=== PATIENT | female | born 1940 | race Hispanic/Latino ===

== ENCOUNTER 2016-10-15 12:22 | Inpatient (IN) | payer MEDICARE, BC ==
[2016-10-15 12:47] VITALS: BMI 23.3
--- NOTE | 2016-10-15 13:21 | ED PDOC ---
Arrival/HPI - General Chief Complaint: Abnormal Skin Integrity Time Seen by Provider: 10/15/16 13:14 Historian: Patient - History of Present Illness Narrative History of Present Illness (Text): 10/15/16 13:15 A 76 year old female presents to the emergency department complaining of a rash on the right side of her chest radiating to her back for 2 days. Patient reports she first experienced a burning pain which then over a few days developed into a rash. Patient also notes generalized weakness, shortness of breath and dyspnea on exertion over the past 3 days. Patient denies any fever, chills, nausea, vomiting, abdominal pain, chest pain or any other complaints. PMD: Dr. Rutherford Time/Duration: < week Symptom Course: Unchanged Quality: Other Context: Other Past Medical History - Provider Review Nursing Documentation Reviewed: Yes - Past History Past History: No Previous - Infectious Disease Hx of Infectious Diseases: None - Tetanus Immunization Tetanus Immunization: Unknown - Reproductive Menopause: Yes - Cardiac Hx Cardiac Disorders: Yes Hx Atrial Fibrillation: Yes Hx Congestive Heart Failure: Yes Other/Comment: Cardiac Stents - Pulmonary Hx Respiratory Disorders: Yes Hx Chronic Obstructive Pulmonary Disease (COPD): Yes - Neurological Hx Neurological Disorder: Yes HX Cerebrovascular Accident: Yes - HEENT Hx HEENT Disorder: No - Renal Hx Renal Disorder: No - Endocrine/Metabolic Hx Endocrine Disorders: No - Hematological/Oncological Hx Blood Disorders: No - Integumentary Hx Dermatological Disorder: Yes (SKIN CA-RADIATION TREATMENTS) Hx Melanoma: Yes - Musculoskeletal/Rheumatological Hx Musculoskeletal Disorders: No Hx Falls: No - Gastrointestinal Hx Gastrointestinal Disorders: No - Genitourinary/Gynecological Hx Genitourinary Disorders: No - Psychiatric Hx Psychophysiologic Disorder: Yes Hx Anxiety: Yes Hx Depression: No Hx Emotional Abuse: No Hx Physical Abuse: No Hx Substance Use: No - Surgical History Hx Coronary Stent: Yes Other/Comment: Brain Tumor - Anesthesia Hx Anesthesia: Yes - Suicidal Assessment Feels Threatened In Home Enviroment: No Family/Social History - Physician Review Nursing Documentation Reviewed: Yes Family/Social History: No Known Family HX Smoking Status: Light Smoker < 10 Cigarettes Daily Hx Alcohol Use: Yes Hx Substance Use: No Allergies/Home Meds Allergies/Adverse Reactions: Allergies No Known Allergies Allergy (Verified 10/15/16 12:47) Home Medications: Home Meds Medication Instructions Recorded Confirmed Atorvastatin Calcium [Lipitor] 20 mg PO HS 07/22/12 10/15/16 Aspirin [Ecotrin] 81 mg PO DAILY 05/11/16 10/15/16 Apixaban [Eliquis] 5 mg PO BID 05/19/16 10/15/16 Verapamil [Calan Tab] 40 mg PO BID 05/19/16 10/15/16 Valsartan [Diovan] 0 mg PO DAILY 10/15/16 10/15/16 Physical Exam - Physical Exam Narrative Physical Exam (Text): - Review of Systems Constitutional: (+) Generalized weakness absent: Weight Change, Fevers Eyes: Normal ENT: Normal Respiratory: (+) Shortness of breath, Dyspnea on exertion absent: Cough, Sputum Cardiovascular: Normal absent: Chest pain, Palpitations, Syncope Gastrointestinal: Normal absent: Abdominal pain, Diarrhea, Nausea, Vomiting Genitourinary: Normal. absent: Dysuria, Frequency, Hematuria Musculoskeletal: Normal. absent: Arthralgias, Back Pain, Neck Pain Skin: (+) Rash on right sided of chest radiating to back Neurological: Normal absent: Focal Weakness Endocrine: Normal Hemo/Lymphatic: Normal Psychiatric: Normal - Physical exam Patient appears age appropriate, speaking full sentences without difficulty - Systems Exam Head: Present: Atraumatic, Normocephalic Pupils: Present: PERRL Extraocular Muscles: Present: EOMI Conjunctiva: Present: Normal Mouth: Present: Moist Mucous Membranes Neck: Present: Normal Range of Motion. No: MIDLINE TENDERNESS, Paraspinal Tenderness Respiratory/Chest: Present: Clear to Auscultation, Good Air Exchange. No: Respiratory Distress, Accessory Muscle Use, Tachypnic Cardiovascular: Present: Regular Rate and Rhythm, Normal S1, S2, Peripheral Pulses Present. No: Murmurs Abdomen: Present: Normal Bowel Sounds, No: Tenderness, Peritoneal Signs, Rebound, Guarding, Distention Back: Present: Normal Inspection. No: Midline Tenderness, Paraspinal Tenderness Upper Extremity: Present: Normal Inspection. No: Cyanosis, Edema Lower Extremity: Present: Normal Inspection. No: Edema Neurological: Present: GCS=15, Speech Normal, cranial nerves II through XII fully intact with no cerebellar abnormality, neuro-sensory fully intact. No focal neurological deficits. Skin: Present: Warm, Dry, Erythematous rash in dermatomal distribution, no crossing midline, consistent with shingles Lymphatic: Present: OX3, NI, NC Psychiatric: Present: Alert, Oriented x 3, Normal Insight, Normal Concentration Vital Signs Reviewed: Yes Vital Signs Temp Pulse Resp BP Pulse Ox 10/15/16 14:28 81 18 97/61 L 99 10/15/16 14:25 97/61 L 10/15/16 12:46 97.3 F L 70 18 101/72 99 Temperature: Afebrile Blood Pressure: Normal Pulse: Regular Respiratory Rate: Normal Appearance: Positive for: Well-Appearing, Non-Toxic, Comfortable Pain Distress: None Mental Status: Positive for: Alert and Oriented X 3 Medical Decision Making ED Course and Treatment: 10/15/16 13:15 Impression: A 76 year old female with a rash on the right side of her chest radiating to back. Consistent with shingles. She is also complaining of intermittent dyspnea on exertion. Lungs are clear to auscultation bilaterally. Patient is not a cardiac, not hypoxic. No lower extremity swelling, no pain or asymmetry. Differential Diagnosis included but are not limited to: Shingles, dehydration, pneumonia Plan: -- Chest xray -- EKG -- Labs -- Aspirin and Lasix -- Reassess and disposition Progress Notes: Patient refusing any pain medication at this time. Report Date : 10/15/2016 13:39:04 Procedure: Chest xray Dictator : Fito Bailey MD IMPRESSION: No active disease. 10/15/16 14:01 EKG shows afib at [address]-segment elevations. Interpreted by me. 10/15/16 16:11 labs reviewed, BNP below baseline pt states she feels too weak to be dc'd at this time dw Dr. Rutherford, accepted admission to her service pt aware of and agrees with plan - Lab Interpretations Lab Results: 10/15/16 14:15 10/15/16 15:10 Lab Results 10/15/16 15:10: Sodium 137, Potassium 3.5 L, Chloride 96 L, Carbon Dioxide 29, Anion Gap 16, BUN 29 H, Creatinine 1.3, Est GFR ( Amer) 48, Est GFR (Non- Af Amer) 40, Random Glucose 82, Calcium 9.6, Total Bilirubin 1.1, AST 42 H, ALT 18, Alkaline Phosphatase 107, Lactate Dehydrogenase 495, Total Creatine Kinase 48, Troponin I < 0.01, NT-Pro-B Natriuret Pep 2320 H, Total Protein 8.3, Albumin 4.3, Globulin 3.9, Albumin/Globulin Ratio 1.1 10/15/16 14:15: PT 11.3, INR 1.05, APTT 30.7 10/15/16 14:15: WBC 6.8 D, RBC 5.06, Hgb 15.8, Hct 45.4, MCV 89.7, MCH 31.2, MCHC 34.8, RDW 14.5, Plt Count 213, MPV 12.4 H, Gran % 62.5, Lymph % (Auto) 29.0 , Trigg % (Auto) 6.3 H, Eos % (Auto) 1.3 L, Baso % (Auto) 0.9, Gran # 4.26, Lymph # 2.0, Trigg # 0.4, Eos # 0.1, Baso # 0.06 - RAD Interpretation Radiology Orders: 10/15/16 13:18 CHEST PORTABLE [RAD] Stat - Medication Orders Current Medication Orders: Discontinued Medications Aspirin (Aspirin Chewable) 324 mg PO STAT STA Stop: 10/15/16 13:19 Furosemide (Lasix) 20 mg IVP STAT STA Stop: 10/15/16 13:19 Last Admin: 10/15/16 14:25 Dose: 20 mg Oxycodone/Acetaminophen (Percocet 5/325 Mg Tab) 1 tab PO STAT STA Stop: 10/15/16 14:39 Last Admin: 10/15/16 14:45 Dose: 1 tab - Scribe Statement The provider has reviewed the documentation as recorded by the Arely Gage Provider Scribe Attestation: All medical record entries made by the Lolisibevy were at my direction and personally dictated by me. I have reviewed the chart and agree that the record accurately reflects my personal performance of the history, physical exam, medical decision making, and the department course for this patient. I have also personally directed, reviewed, and agree with the discharge instructions and disposition. Disposition/Present on Arrival - Present on Arrival Any Indicators Present on Arrival: No History of DVT/PE: No History of Uncontrolled Diabetes: No Urinary Catheter: No History of Decub. Ulcer: No History Surgical Site Infection Following: None - Disposition Have Diagnosis and Disposition been Completed?: Yes Diagnosis: Shingles Disposition: HOSPITALIZED Disposition Time: 16:14 Patient Plan: Observation Patient Problems: Current Active Problems Problem Status Onset Shinglsam Acute Condition: FAIR Discharge Instructions (ExitCare): Shira (ED)
--- NOTE | 2016-10-15 13:40 | RAD ---
HISTORY: cough COMPARISON: 07/01/2016 FINDINGS: LUNGS: No active pulmonary disease. PLEURA: No significant pleural effusion identified, no pneumothorax apparent. CARDIOVASCULAR: Normal. OSSEOUS STRUCTURES: No significant abnormalities. VISUALIZED UPPER ABDOMEN: Normal. OTHER FINDINGS: None. IMPRESSION: No active disease.
[2016-10-15 14:22] LABS: ADD MANUAL DIFF? NO
[2016-10-15 14:25] LABS: BASO # 0.06 K/mm3 (0.0-2.0); BASO % 0.9 % (0.0-3.0); EOS # 0.1 (0.0-0.7); EOS % 1.3 % (1.5-5.0); GRAN # 4.26 (1.4-6.5); GRAN % 62.5 % (50.0-68.0); HEMATOCRIT 45.4 % (36.0-48.0); MEAN CELL VOLUME 89.7 fL (80.0-105.0); MEAN CORPUSCULAR HEMOGLOBIN 31.2 pg (25.0-35.0); MEAN CORPUSCULAR HGB CONC 34.8 g/dl (31.0-37.0); MEAN PLATELET VOLUME 12.4 fl (7.0-11.0); MONO # 0.4 (0.1-0.6); MONO % 6.3 % (1.0-6.0); PLATELET COUNT 213 10^3/uL (120.0-450.0); RED CELL DISTRIBUTION WIDTH 14.5 % (11.5-14.5); WHITE BLOOD COUNT 6.8 10^3/ul (4.5-11.0)
[2016-10-15 14:35] LABS: INR 1.05 (0.93-1.08); PARTIAL THROMBOPLASTIN TIME 30.7 Seconds (23.7-30.8)
[2016-10-15] MEDS ORDERED: Oxycodone/Acetaminophen 5/325 mg Tab PO STA (14:38)
[2016-10-15 15:49] LABS: ALB/GLOB RATIO 1.1 (1.1-1.8); ALKALINE PHOSPHATASE 107 U/L (38-133); ALT/SGPT 18 U/L (7-56); AST/SGOT 42 U/L (15-39); BILIRUBIN,TOTAL 1.1 mg/dL (0.2-1.3); BLOOD UREA NITROGEN 29 mg/dL (7-21); CALCIUM 9.6 mg/dL (8.4-10.5); CARBON DIOXIDE 29 mmol/L (21-33); CHLORIDE 96 mmol/L (98-107); GFR AFRICAN-AMERICAN 48; GLUCOSE,RANDOM 82 mg/dL (70-110); POTASSIUM 3.5 mmol/L (3.6-5.0); SODIUM 137 mmol/L (132-148); TOTAL PROTEIN 8.3 g/dL (5.8-8.3)
[2016-10-15 16:01] LABS: TROPONIN I < 0.01 ng/mL
[2016-10-15] MEDS: Levalbuterol 1.25 MG/3 ML Inhal Soln UD IH SCH (21:29)
--- NOTE | 2016-10-16 00:02 | HP ---
HISTORY OF PRESENT ILLNESS: The patient is a 76-year-old female known to me from multiple previous a dmissions, came to Emergency Room having discomfort and burning on the right side of the chest radiat ing towards the back going on for the last 2 days and she started to notice rash on the same side whe re she was having pain for the last few days. Complained of generalized weakness. Complained of fee ling very fatigued and tired, short of breath. Denies any fever or chills. No history of nausea or vomiting, no history of hemoptysis, no hematemesis. PAST MEDICAL HISTORY: Significant for: 1. Chronic atrial fibrillation, currently on anticoagulant. 2. History of COPD. 3. History of coronary artery disease, status post angioplasty. 4. History of compression fractures of L1. 5. Hyperlipidemia. 6. Anxiety disorder. ALLERGIES: SHE IS ALLERGIC TO PLAVIX. MEDICATIONS AT HOME: 1. Eliquis 5 mg twice a day. 2. Xanax 0.25 t.i.d. p.r.n. 3. Verapamil 40 mg twice a day. 4. Aspirin 81 daily. 5. Atorvastatin 20 mg daily. 6. . SOCIAL HISTORY: She is single. She is a . She is still an active smoker, although she claims she has cut down a lot. REVIEW OF SYSTEMS: Significant for right-sided burning chest pain because of the rash and also compl ained of generalized weakness, cough and congestion, shortness of breath. PHYSICAL EXAMINATION: GENERAL: She is awake and alert, communicative. VITAL SIGNS: She is afebrile, pulse 70, respirations 18, blood pressure 101/72. LUNGS: Bilateral diffusely decreased breath sounds, few expiratory rhonchi. HEART: S1, S2 audible. ABDOMEN: Soft, nontender, no rebound, no guarding. NEUROLOGIC: She is awake and alert, communicative and moves all extremities. She has a rash on the right side of the chest. ASSESSMENT: 1. Herpes zoster. 2. Chronic obstructive pulmonary disease exacerbation. 3. Atrial fibrillation. 4. Hypertension. 5. Hyperlipidemia. PLAN: We will start patient on , resume her usual medication, analgesic as needed. We will ree valuate the patient in a.m. Deny Rutherford MD cc: [phone] TT: 10/16/2016 00:01:37 ln
[2016-10-16] MEDS: Levalbuterol 1.25 MG/3 ML Inhal Soln UD IH SCH ×3 (00:59→13:29)
[2016-10-16] MEDS: Pantoprazole 40 mg EC Tab PO SCH (06:03)
[2016-10-16] MEDS ORDERED: Sodium Chloride 0.9% 250 ML IV STA (09:49)
--- NOTE | 2016-10-16 09:51 | CARD ---
APPROVED REPORT EKG Measurement Heart [id number] <Conclusion> Atrial fibrillation Prolonged QT RVCD No change
--- NOTE | 2016-10-16 12:08 | PN ---
DATE: 10/16/2016 SUBJECTIVE: The patient is a 76-year-old seen and examined, lying in bed, complained of having gener alized weakness, difficulty walking. Complained of shortness of breath. PHYSICAL EXAMINATION: VITAL SIGNS: She is afebrile, pulse 63, respirations 19, blood pressure 92/52. LUNGS: Bilateral fair airflow, no rhonchi or crackle. HEART: S1, S2 audible. ABDOMEN: Soft, nontender, no rebound, no guarding. NEUROLOGIC: She is awake and alert, communicative. Moves all extremities. She has a rash on her [facility] mid chest area, complained of burning to that area. ASSESSMENT: 1. Chronic obstructive pulmonary disease exacerbation. 2. History of atrial fibrillation. 3. Coronary artery disease. 4. Herpes zoster of the right chest with intractable pain. 5. Hyperlipidemia. 6. Anxiety disorder. 7. Hypotension. PLAN: We will give a bolus of 250 of normal saline. We will hold her Lasix and continue her on aspi rin and Eliquis. She has been started on Famvir and analgesic as needed. We can discontinue her tel emetry. Encourage ambulation, out of bed to chair. We will reevaluate the patient in a.m. Deny Rutherford MD cc: [phone] TT: 10/16/2016 12:07:39 Confirmation # [id number] Dictation # [id number] alonso
[2016-10-16] MEDS: Oxycodone/Acetaminophen 5/325 mg Tab PO PRN (22:05)
[2016-10-17] MEDS: Levalbuterol 1.25 MG/3 ML Inhal Soln UD IH SCH ×5 (02:59→22:15)
[2016-10-17] MEDS: Pantoprazole 40 mg EC Tab PO SCH (05:38)
[2016-10-17 08:32] LABS: POTASSIUM 3.6 mmol/L (3.6-5.0); TOTAL PROTEIN 6.5 g/dL (5.8-8.3)
--- NOTE | 2016-10-17 11:40 | PN ---
DATE: 10/17/2016 HISTORY OF PRESENT ILLNESS: The patient is a 76-year-old female admitted to the hospital with right- sided chest pain and eruption on the right side of the chest consistent with herpes zoster. She was feeling tired and fatigued. No shortness of breath, no fever, no shortness of breath. She also has history of atrial fibrillation, currently on Eliquis 5 mg twice a day. No bleeding from any site. C OPD, no exacerbation. Coronary artery disease status stable. She also has compression fracture of L 1 vertebra, denies any back pain. PAST MEDICAL HISTORY: Atrial fibrillation, COPD, coronary artery disease, compression fracture L1, h yperlipidemia, anxiety. ALLERGIES: ALLERGIC TO PENICILLIN. HOME MEDICATIONS: Eliquis 5 mg b.i.d., Xanax p.r.n., verapamil 40 twice a day, aspirin 81 mg daily, Lipitor 20 mg daily. PAST SURGICAL HISTORY: Unknown. FAMILY HISTORY: Noncontributory. No positive history mother, father. REVIEW OF SYSTEMS: As per HPI. Rest of 12-point reviewed, negative. SOCIAL HISTORY: Single, lives at home alone. PERSONAL HISTORY: Active smoker. Continues to smoke. PHYSICAL EXAMINATION: GENERAL: Comfortable in bed, no acute distress, alert, oriented x 3. VITAL SIGNS: Afebrile, temperature 98.7, heart rate 80 per minute, respiratory 15 per minute, blood pressure 110/70. NECK: Normal. CHEST: Air entry present, equal bilateral. No added sound. CARDIOVASCULAR: Within normal limits. ABDOMEN: Soft, nontender, no hepatosplenomegaly. EXTREMITIES: No edema. NEUROLOGIC: Awake, alert, oriented x 3. No focal motor deficit. ABDOMEN: Soft, nontender, no hepatosplenomegaly. No rebound tenderness. SKIN: Right side of the chest eruptions present and consistent with zoster. No petechia, rash as de scribed. SPINE: Nontender. LABORATORIES: White count 6.8, hemoglobin 15.8, hematocrit 45.5, platelet count 213, neutrophils 62% , lymphocytes 29%, monocytes 6.3%, eosinophils 1.3%. PT 11.3, INR 1.5, PTT 30. Sodium 137, potassiu m 3.6, creatinine 2.5. BNP 2300. ASSESSMENT: 1. Shingles. 2. Atrial fibrillation. 3. Chronic obstructive pulmonary disease. 4. Hypertension. 5. Hyperlipidemia. 6. Chronic kidney disease stage III. PLAN: She is currently on Xanax. We will continue that. Eliquis 5 mg p.o. b.i.d., continue that. Aspirin 81 mg daily. She is on Famvir 500 mg q. 8 hours, Lasix 20 mg daily, Percocet p.r.n. for pain , Protonix. Continue Protonix, verapamil 40 mg p.o. b.i.d. We will do discharge planning. When sta ble, will be discharged home. Carmen Mensah MD cc: [id number] TT: 10/17/2016 11:39:32 Confirmation # [id number] Dictation # [id number] en
[2016-10-17] MEDS: Oxycodone/Acetaminophen 5/325 mg Tab PO PRN (21:58)
[2016-10-18] MEDS: Levalbuterol 1.25 MG/3 ML Inhal Soln UD IH SCH ×4 (03:10→20:22)
[2016-10-18] MEDS: Pantoprazole 40 mg EC Tab PO SCH (05:59)
[2016-10-18] MEDS: Oxycodone/Acetaminophen 5/325 mg Tab PO PRN ×2 (08:19→21:47)
[2016-10-18] MEDS ORDERED: Dextrose 5%/0.45% NS 1,000 ML IV SCH (10:30)
--- NOTE | 2016-10-18 18:29 | PN ---
DATE: 10/18/2016 SUBJECTIVE: The patient is a 76-year-old seen and examined. Complained of generalized weakness, dif ficulty walking, complained of burning pain on the right side, rash seemed to be scabbed and scaly. PHYSICAL EXAMINATION: VITAL SIGNS: She is afebrile, pulse 84, respirations 18, blood pressure 119 65. LUNGS: Bilateral fair airflow, no rhonchi or crackle. HEART: S1, S2 audible. ABDOMEN: Soft, nontender, no rebound, no guarding. NEUROLOGIC: She is awake and alert, communicative. EXTREMITIES: She has a rash in the middle of the chest, extending from the back to the front, overly ing the right breast. LABORATORY: Sodium 137, potassium 3.6, chloride 99, CO2 28, BUN 45, creatinine 2.4, blood sugar of 1 07. LFTs are within normal limits. ASSESSMENT: 1. Herpes zoster along with hepatic neuralgia. 2. Atrial fibrillation. 3. Hypertension. 4. Hyperlipidemia. 5. Acute renal insufficiency. PLAN: I will discontinue Lasix, start her on IV fluid, and follow up her CBC and CMP. ID evaluation by Dr. Albrecht has been requested. The patient is started on Valtrex and we put her on Percocet as needed and follow up her CBC and CMP in a.m. Deny Rutherford MD cc: [phone] TT: 10/18/2016 18:28:32 Confirmation # [id number] Dictation # [id number] alonso
[2016-10-18 19:12] VITALS: RESP 20
[2016-10-19] MEDS: Oxycodone/Acetaminophen 5/325 mg Tab PO PRN (01:32)
[2016-10-19] MEDS: Dextrose 5%/0.45% NS 1,000 ML IV SCH ×2 (01:34→07:40)
[2016-10-19] MEDS: Levalbuterol 1.25 MG/3 ML Inhal Soln UD IH SCH ×3 (03:00→13:33)
[2016-10-19 07:18] LABS: ADD MANUAL DIFF? NO
[2016-10-19 07:24] LABS: BASO # 0.05 K/mm3 (0.0-2.0); BASO % 0.8 % (0.0-3.0); EOS # 0.1 (0.0-0.7); EOS % 2.2 % (1.5-5.0); GRAN % 62.1 % (50.0-68.0); HEMATOCRIT 36.5 % (36.0-48.0); LYMPH # 1.7 (1.2-3.4); LYMPH % 26.2 % (22.0-35.0); MEAN CORPUSCULAR HEMOGLOBIN 30.5 pg (25.0-35.0); MEAN CORPUSCULAR HGB CONC 34.2 g/dl (31.0-37.0); MEAN PLATELET VOLUME 11.8 fl (7.0-11.0); MONO # 0.6 (0.1-0.6); MONO % 8.7 % (1.0-6.0); PLATELET COUNT 224 10^3/uL (120.0-450.0); RED CELL DISTRIBUTION WIDTH 13.9 % (11.5-14.5); WHITE BLOOD COUNT 6.4 10^3/ul (4.5-11.0)
[2016-10-19 07:48] LABS: ALB/GLOB RATIO 1.1 (1.1-1.8); CALCIUM 8.9 mg/dL (8.4-10.5); POTASSIUM 4.2 mmol/L (3.6-5.0); TOTAL PROTEIN 6.8 g/dL (5.8-8.3)
[2016-10-19] MEDS: Pantoprazole 40 mg EC Tab PO SCH (08:03)
[2016-10-19 09:07] VITALS: TEMP 97.5; O2SAT 100
[2016-10-19 10:30] VITALS: BP 114/60; PULSE 81
--- NOTE | 2016-10-19 14:18 | DS ---
The patient is 76 years old, seen and examined. Doing well. She feels more energetic. Able to ambu late more. Still complained of pain in the right chest, the rash area. PHYSICAL EXAMINATION: VITAL SIGNS: She is afebrile, pulse 56, respiration 20, blood pressure 136/70. LUNGS: Bilateral good airflow, no rhonchi or crackle. HEART: S1, S2 audible. ABDOMEN: Soft, nontender, no rebound, no guarding. NEUROLOGIC: She is awake and alert, communicative. LABORATORY EXAM: WBC 6.4, hemoglobin 12, hematocrit 36, platelet of 224. Chemistry: Sodium 132, po tassium 4.2, chloride 96, CO2 of 28, BUN 41, creatinine 1.5, blood sugar of 95. ASSESSMENT: 1. Right chest herpetic lesion, seems to be scabbing. She complained of some herpetic neuralgia. 2. Hypertension. 3. Generalized weakness. 4. Renal insufficiency, improved. PLAN: Famvir has been discontinued. The patient does not want to take Valtrex. Since her rashes ar e scabbing, we will hold off Valtrex too and I will continue her on usual medication including verapa mil, aspirin, Diovan, Eliquis, atorvastatin. She was given prescription of Percocet as needed. She will be discharged home today and we will follow her up in office in a week or two. Deny Rutherford MD cc: [phone] TT: 10/19/2016 14:17:50 sn
--- NOTE | 2016-10-19 14:48 | CP.PCM.CON ---
History of Present Illness - History of Present Illness History of Present Illness: 76 year old female with PMH of brain cancer, history of skin cancer, CAD S/P PCI , chronic CHF, CVA, atrial fibrillation, anxiety disorder came in to [facility] complaining of rash on her right chest area for the past 2 days. She has been started on Famvir 2 days ago with improvement but her renal function worsened. Infectious diseases consult is requested to further evaluate and manage. Currently she denies fever or chills, no nausea or vomiting, no headache or dizziness, no chest pain, decreasing pain around the area of rash, no diarrhea, no hematuria, no dysuria, no SOB, no chest pain, no cough or colds. Review of Systems - Review of Systems All systems: reviewed and no additional remarkable complaints except (as per HPI ) Past Patient History - Infectious Disease Hx of Infectious Diseases: None - Tetanus Immunizations Tetanus Immunization: Unknown - Past Social History Smoking Status: Former Smoker - CARDIAC Hx Cardiac Disorders: Yes Hx Atrial Fibrillation: Yes Hx Congestive Heart Failure: Yes Other/Comment: Cardiac Stents - PULMONARY Hx Chronic Obstructive Pulmonary Disease (COPD): Yes - NEUROLOGICAL Hx Neurological Disorder: Yes HX Cerebrovascular Accident: Yes - HEENT Hx HEENT Problems: No - RENAL Hx Chronic Kidney Disease: No - ENDOCRINE/METABOLIC Hx Endocrine Disorders: No - HEMATOLOGICAL/ONCOLOGICAL Hx Blood Disorders: No - INTEGUMENTARY Hx Dermatological Problems: Yes (SKIN CA-RADIATION TREATMENTS) Hx Melanoma: Yes - MUSCULOSKELETAL/RHEUMATOLOGICAL Hx Falls: No - GASTROINTESTINAL Hx Gastrointestinal Disorders: No - GENITOURINARY/GYNECOLOGICAL Hx Genitourinary Disorders: No - PSYCHIATRIC Hx Psychophysiologic Disorder: Yes Hx Anxiety: Yes Hx Depression: No Hx Emotional Abuse: No Hx Physical Abuse: No Hx Substance Use: No - SURGICAL HISTORY Hx Coronary Stent: Yes Other/Comment: Brain Tumor - ANESTHESIA Hx Anesthesia: Yes Meds Home Medications: Home Medication List Medication Instructions Recorded Confirmed Type oxyCODONE/Acetaminophen [Percocet 1 tab PO Q6H PRN #30 tab 10/19/16 Rx 5/325 mg Tab] valACYclovir [Valtrex] 500 mg PO BID #10 tab 10/19/16 Rx Allergies/Adverse Reactions: Allergies Allergy/AdvReac Type Severity Reaction Status Date / Time No Known Allergies Allergy Verified 10/15/16 12:47 - Medications Medications: Current Medications Acetaminophen (Tylenol 325mg Tab) 650 mg PO Q6H PRN PRN Reason: Fever >100.4 F Alprazolam (Xanax) 0.25 mg PO TID PRN; Protocol PRN Reason: Anxiety Stop: 10/22/16 19:30 Last Admin: 10/16/16 22:05 Dose: 0.25 mg Apixaban (Eliquis) 5 mg PO 1000,2200 [facility] PRN Reason: Protocol Aspirin (Ecotrin) 81 mg PO 1700 [facility] Atorvastatin Calcium (Lipitor) 20 mg PO 1700 [facility] Dextrose/Sodium Chloride (Dextrose 5%/0.45% Ns 1000 Ml) 1,000 mls @ 80 mls/hr IV .[id number] [facility] Levalbuterol HCl (Xopenex) 1.25 mg IH [id number] [facility] Last Admin: 10/18/16 14:00 Dose: Not Given Ondansetron HCl (Zofran Inj) 4 mg IVP Q6H PRN PRN Reason: Nausea/Vomiting Pantoprazole Sodium (Protonix Ec Tab) 40 mg PO 0630 [facility] Last Admin: 10/18/16 05:59 Dose: 40 mg Valacyclovir HCl (Valtrex) 1 gm PO DAILY [facility] PRN Reason: Protocol Verapamil HCl (Calan Tab) 40 mg PO 1000,2200 [facility] Physical Exam - Constitutional Appears: Non-toxic, No Acute Distress - Head Exam Head Exam: NORMAL INSPECTION - ENT Exam ENT Exam: Mucous Membranes Moist - Neck Exam Neck exam: Negative for: Lymphadenopathy, Meningismus - Respiratory Exam Respiratory Exam: Decreased Breath Sounds - Cardiovascular Exam Cardiovascular Exam: +S1, +S2 - GI/Abdominal Exam GI & Abdominal Exam: Soft. absent: Tenderness - Skin Additional comments: right side of chest and breast with lesions compatible with herpes zoster - the lesions are crusting Results - Vital Signs Recent Vital Signs: Last Vital Signs Temp 97.8 F 10/18/16 16:00 Pulse 81 10/18/16 16:00 Resp 20 10/18/16 16:00 BP 141/68 10/18/16 16:00 Pulse Ox 98 10/18/16 16:00 - Labs Result Diagrams: 10/19/16 07:00 10/19/16 07:00 Assessment & Plan - Assessment and Plan (Free Text) Plan: Assessment Herpes zoster, clinically improving acute on chronic renal failure brain cancer history of skin cancer CAD S/P PCI chronic CHF CVA atrial fibrillation anxiety disorder Plan Lesions are crusting - maintain standard precautions but since the lesions are crusted, no contact isolation (And the lesions are covered as well) Patient has nausea with valtrex - based on her most recent renal function , she can continue on Famvir 500 mg daily to complete 3-5 more days of therapy
== END 2016-10-19 15:03 | disposition home or self-care (01) | DRG 596 ==
LOC: ED 12:22 → ERH 16:14 → 2RNO 20:39 → OBSVTOIN 10-16 11:46 → 5RSO 10-16 18:11
PROVIDERS: ADMIT Internal Medicine; ATTEND Internal Medicine
DX: B02.9 Zoster without complications (principal); N17.9 Acute kidney failure, unspecified; C71.9 Malignant neoplasm of brain, unspecified; I13.0 Hypertensive heart and chronic kidney disease with heart failure and stage 1 through stage 4 chronic kidney disease, or unspecified chronic kidney disease; I95.9 Hypotension, unspecified; I50.9 Heart failure, unspecified; J44.1 Chronic obstructive pulmonary disease with (acute) exacerbation; M48.56XA Collapsed vertebra, not elsewhere classified, lumbar region, initial encounter for fracture; N18.3 Chronic kidney disease, stage 3 (moderate); M79.2 Neuralgia and neuritis, unspecified; R53.1 Weakness; E78.5 Hyperlipidemia, unspecified; F17.200 Nicotine dependence, unspecified, uncomplicated; F41.9 Anxiety disorder, unspecified; I25.10 Atherosclerotic heart disease of native coronary artery without angina pectoris; I48.2 Chronic atrial fibrillation; Z79.01 Long term (current) use of anticoagulants; Z79.82 Long term (current) use of aspirin; Z79.899 Other long term (current) drug therapy; Z85.820 Personal history of malignant melanoma of skin; Z85.841 Personal history of malignant neoplasm of brain; Z86.73 Personal history of transient ischemic attack (TIA), and cerebral infarction without residual deficits; Z95.5 Presence of coronary angioplasty implant and graft; R40.2412 Glasgow coma scale score 13-15, at arrival to emergency department; Z88.0 Allergy status to penicillin

== ENCOUNTER 2016-11-30 13:41 | Observation (INO) | payer MEDICARE, BC ==
[2016-11-30 13:41] VITALS: BMI 23.3
[2016-11-30] MEDS ORDERED: Sodium Chloride 0.9% 1,000 ML IV STA (14:04)
[2016-11-30] MEDS ORDERED: Morphine 2 mg/ml ISec IVP STA (14:05)
--- NOTE | 2016-11-30 14:13 | ED PDOC ---
Arrival/HPI - General Chief Complaint: Trauma Time Seen by Provider: 11/30/16 13:52 Historian: Patient - History of Present Illness Narrative History of Present Illness (Text): 11/30/16 14:00 A 76 year old female, whose past medical history includes Atrial fibrillation ( on eliquis), COPD and CAD, presents to the emergency department for evaluation after a mechanical fall that took place yesterday. Patient reports she was at the supermarket, when her shopping cart rolled away and as she extended herself , she fell. Patient states she landed on her left side and did lightly hit the left side of her head. She did not lose consciousness. She says she felt fine at the time, so she went home. She reports later in the evening she began to feel dizzy and nauseated. Patient notes a mild headache, left arm pain and multiple areas of bruising. She describes the dizziness as a feeling that she is about to pass out. She denies any chest pain, shortness of breath or other complaints at this time. PMD: Dr. Rutherford Time/Duration: 24 hours Symptom Onset: Sudden Symptom Course: Unchanged Quality: Other Activities at Onset: Rest Context: Other Past Medical History - Provider Review Nursing Documentation Reviewed: Yes - Past History Past History: No Previous - Infectious Disease Hx of Infectious Diseases: None - Tetanus Immunization Tetanus Immunization: Unknown - Cardiac Hx Cardiac Disorders: Yes Hx Atrial Fibrillation: Yes Hx Congestive Heart Failure: Yes Other/Comment: Cardiac Stents - Pulmonary Hx Respiratory Disorders: Yes Hx Chronic Obstructive Pulmonary Disease (COPD): Yes - Neurological Hx Neurological Disorder: Yes HX Cerebrovascular Accident: Yes - HEENT Hx HEENT Disorder: No - Renal Hx Renal Disorder: No - Endocrine/Metabolic Hx Endocrine Disorders: No - Hematological/Oncological Hx Blood Disorders: No - Integumentary Hx Dermatological Disorder: Yes (SKIN CA-RADIATION TREATMENTS) Hx Melanoma: Yes - Musculoskeletal/Rheumatological Hx Falls: No - Gastrointestinal Hx Gastrointestinal Disorders: No - Genitourinary/Gynecological Hx Genitourinary Disorders: No - Psychiatric Hx Psychophysiologic Disorder: Yes Hx Anxiety: Yes Hx Depression: No Hx Emotional Abuse: No Hx Physical Abuse: No Hx Substance Use: No - Surgical History Hx Coronary Stent: Yes Other/Comment: Brain Tumor - Anesthesia Hx Anesthesia: Yes - Suicidal Assessment Feels Threatened In Home Enviroment: No Family/Social History - Physician Review Nursing Documentation Reviewed: Yes Family/Social History: Unknown Family HX Smoking Status: Former Smoker Hx Alcohol Use: No Hx Substance Use: No Allergies/Home Meds Allergies/Adverse Reactions: Allergies No Known Allergies Allergy (Verified 11/30/16 13:55) Home Medications: Home Meds Medication Instructions Recorded Confirmed Atorvastatin Calcium [Lipitor] 20 mg PO HS 07/22/12 10/15/16 Aspirin [Ecotrin] 81 mg PO DAILY 05/11/16 10/15/16 Apixaban [Eliquis] 5 mg PO BID 05/19/16 10/15/16 Verapamil [Calan Tab] 40 mg PO BID 05/19/16 10/15/16 Valsartan [Diovan] 0 mg PO DAILY 10/15/16 10/15/16 Review of Systems - Physician Review All systems were reviewed & negative as marked: Yes - Review of Systems Constitutional: Other (head trauma). absent: Fevers Respiratory: absent: SOB Cardiovascular: absent: Chest Pain, Syncope Gastrointestinal: Nausea. absent: Abdominal Pain, Diarrhea, Vomiting Musculoskeletal: Other (left arm pain) Skin: Other (ecchymosis) Neurological: Headache, Dizziness Physical Exam Vital Signs Reviewed: Yes Vital Signs Temp Pulse Resp BP Pulse Ox 11/30/16 17:44 67 18 144/65 100 11/30/16 16:51 69 18 146/67 100 11/30/16 15:20 75 18 148/69 100 11/30/16 13:41 97.9 F 89 17 151/73 H 100 Temperature: Afebrile Blood Pressure: Hypertensive Pulse: Regular Respiratory Rate: Normal Appearance: Positive for: Well-Appearing, Non-Toxic, Comfortable Pain Distress: None Mental Status: Positive for: Alert and Oriented X 3 - Systems Exam Head: Present: Atraumatic, Normocephalic Pupils: Present: PERRL Extroacular Muscles: Present: EOMI Conjunctiva: Present: Normal Mouth: Present: Moist Mucous Membranes Neck: Present: Normal Range of Motion Respiratory/Chest: Present: Clear to Auscultation, Good Air Exchange. No: Respiratory Distress, Accessory Muscle Use Cardiovascular: Present: Regular Rate and Rhythm, Normal S1, S2. No: Murmurs Abdomen: Present: Normal Bowel Sounds. No: Tenderness, Distention, Peritoneal Signs Back: Present: Normal Inspection Upper Extremity: Present: Normal ROM, NORMAL PULSES, Tenderness (tenderness with palpation to the left forearm, left wrist and left hand), Neurovascularly Intact, Capillary Refill < 2s, Other (ecchymosis to the dorsum of the left forearm, left wirst and left hand.). No: Cyanosis, Edema, Swelling Lower Extremity: Present: Normal ROM, Other (abrasion the the left knee ). No: Edema, Tenderness, Swelling Neurological: Present: GCS=15, CN II-XII Intact, Speech Normal Skin: Present: Warm, Dry, Normal Color. No: Rashes Psychiatric: Present: Alert, Oriented x 3, Normal Insight, Normal Concentration Medical Decision Making ED Course and Treatment: 11/30/16 14:00 Impression: A 76 year old female after a mechanical fall. Differential Diagnosis included but are not limited to: fracture vs. dislocation vs. sprain vs. strain vs intracranial abnormalities vs. cva vs. concussion Plan: -- Cervical Spine CT -- Head CT -- Chest X-ray -- Left Forearm X-ray -- Left Hand X-ray -- Left shoulder X-ray -- Left Wrist X-ray -- Labs -- Urinalysis -- Morphine, Zofran and IV Fluids -- Reassess and disposition Prior Visits: Notes and results from previous visits were reviewed. The patient last presented to the emergency department on 10/15/16 for evaluation of a rash. Progress Notes: 11/30/16 16:[address]: Creator : Romeo Alonzo MD IMPRESSION: No acute intracranial finding 11/30/16 16:[address]: Creator : Romeo Alonzo MD IMPRESSION: No acute findings 11/30/16 17:23 Left Wrist X-ray: Creator : Romeo Alonzo MD IMPRESSION: There is a transverse fracture of the mid scaphoid. This has sclerotic edges and is probably chronic 11/30/16 17:25 Left Shoulder X-ray: Creator : Romeo Alonzo MD IMPRESSION: Normal radiographs of the left shoulder. 11/30/16 17:47 Patient with noted history, initially of mechanical fall and later with dizziness, describing the dizziness as a feeling of about to pass out. EKG shows atrial flutter, which is chronic. Imaging shows what appears to be no acute fracture; there is scaphoid fracture that is described as likely chronic, so will place patient in a velcro wrist splint and follow up ortho. Patient however is continuing to complain of dizziness with a near syncopal feeling, so will need to observe further. Case discussed with Dr. Rutherford for placement on her service as well as Dr. Hargrove for neuro. - Lab Interpretations Lab Results: 11/30/16 14:35 11/30/16 14:35 Lab Results 11/30/16 14:35: Sodium 140, Potassium 3.6, Chloride 104, Carbon Dioxide 27, Anion Gap 13, BUN 32 H, Creatinine 1.2, Est GFR ( Amer) 53, Est GFR (Non- Af Amer) 44, Random Glucose 86, Calcium 9.3, Magnesium 1.9, Total Bilirubin 0.8 , AST 19, ALT 17, Alkaline Phosphatase 106, Lactate Dehydrogenase 457, Total Creatine Kinase 40, Troponin I < 0.01, Total Protein 7.2, Albumin 4.0, Globulin 3.2, Albumin/Globulin Ratio 1.3, Lipase 74 11/30/16 14:35: PT 11.5, INR 1.06, APTT 35.2 H 11/30/16 14:35: WBC 8.5 D, RBC 4.07, Hgb 12.3, Hct 37.6, MCV 92.4, MCH 30.2, MCHC 32.7, RDW 15.1 H, Plt Count 226, MPV 11.7 H, Gran % 72.5 H, Lymph % (Auto) 19.6 L, Mclean % (Auto) 6.3 H, Eos % (Auto) 1.1 L, Baso % (Auto) 0.5, Gran # 6.16 , Lymph # 1.7, Mclean # 0.5, Eos # 0.1, Baso # 0.04 I have reviewed the lab results: Yes - RAD Interpretation Radiology Orders: 11/30/16 14:00 Brain [HEAD W/O CONTRAST] [CT] Stat CERVICAL SPINE W/O CONTRAST [CT] Stat 11/30/16 14:01 FOREARM LEFT [RAD] Stat WRIST, LEFT 3 VIEWS [RAD] Stat 11/30/16 14:02 CHEST TWO VIEWS (PA/LAT) [RAD] Stat HAND LEFT 3 VIEWS ROUTINE [RAD] Stat SHOULDER LEFT [RAD] Stat - EKG Interpretation EKG Interpretation (Text): 11/30/16 17:50 atrial flutter with no new ST/T changes c/w 10/15/16; normal axis. Interpreted by ED Physician: Yes Type: 12 lead EKG - Medication Orders Current Medication Orders: Sodium Chloride (Sodium Chloride 0.9%) 1,000 mls @ 100 mls/hr IV .Q10H STA Stop: 12/01/16 00:03 Last Admin: 11/30/16 15:00 Dose: 100 mls/hr Discontinued Medications Ketorolac Tromethamine (Toradol) 60 mg IM STAT STA Stop: 11/30/16 14:09 Last Admin: 11/30/16 16:50 Dose: 60 mg Morphine Sulfate (Morphine) 2 mg IVP STAT STA Stop: 11/30/16 14:06 Last Admin: 11/30/16 14:57 Dose: 2 mg Ondansetron HCl (Zofran Inj) 4 mg IVP STAT STA Stop: 11/30/16 14:06 Last Admin: 11/30/16 14:57 Dose: 4 mg - Scribe Statement The provider has reviewed the documentation as recorded by the Arely Boss Provider Scribe Attestation: All medical record entries made by the Lolisibevy were at my direction and personally dictated by me. I have reviewed the chart and agree that the record accurately reflects my personal performance of the history, physical exam, medical decision making, and the department course for this patient. I have also personally directed, reviewed, and agree with the discharge instructions and disposition. Disposition/Present on Arrival - Present on Arrival Any Indicators Present on Arrival: No History of DVT/PE: No History of Uncontrolled Diabetes: No Urinary Catheter: No History of Decub. Ulcer: No History Surgical Site Infection Following: None - Disposition Have Diagnosis and Disposition been Completed?: Yes Diagnosis: Near syncope, Dizziness Disposition: HOSPITALIZED Disposition Time: 17:25 Patient Plan: Observation, Telemetry Condition: FAIR Referrals: Deny Rutherford MD [Primary Care Provider] - Follow up with primary
[2016-11-30 14:42] LABS: ADD MANUAL DIFF? NO
[2016-11-30 14:46] LABS: BASO # 0.04 K/mm3 (0.0-2.0); BASO % 0.5 % (0.0-3.0); EOS # 0.1 (0.0-0.7); EOS % 1.1 % (1.5-5.0); GRAN # 6.16 (1.4-6.5); GRAN % 72.5 % (50.0-68.0); HEMATOCRIT 37.6 % (36.0-48.0); LYMPH # 1.7 (1.2-3.4); LYMPH % 19.6 % (22.0-35.0); MEAN CELL VOLUME 92.4 fL (80.0-105.0); MEAN CORPUSCULAR HEMOGLOBIN 30.2 pg (25.0-35.0); MEAN CORPUSCULAR HGB CONC 32.7 g/dl (31.0-37.0); MEAN PLATELET VOLUME 11.7 fl (7.0-11.0); MONO # 0.5 (0.1-0.6); MONO % 6.3 % (1.0-6.0); PLATELET COUNT 226 10^3/uL (120.0-450.0); RED CELL DISTRIBUTION WIDTH 15.1 % (11.5-14.5); WHITE BLOOD COUNT 8.5 10^3/ul (4.5-11.0)
[2016-11-30 14:56] LABS: ALB/GLOB RATIO 1.3 (1.1-1.8); ALKALINE PHOSPHATASE 106 U/L (38-133); ALT/SGPT 17 U/L (7-56); AST/SGOT 19 U/L (15-39); BILIRUBIN,TOTAL 0.8 mg/dL (0.2-1.3); BLOOD UREA NITROGEN 32 mg/dL (7-21); CALCIUM 9.3 mg/dL (8.4-10.5); CARBON DIOXIDE 27 mmol/L (21-33); CHLORIDE 104 mmol/L (98-107); GFR AFRICAN-AMERICAN 53; GLUCOSE,RANDOM 86 mg/dL (70-110); INR 1.06 (0.93-1.08); LIPASE 74 U/L (23-300); MAGNESIUM 1.9 mg/dL (1.7-2.2); PARTIAL THROMBOPLASTIN TIME 35.2 Seconds (23.7-30.8); POTASSIUM 3.6 mmol/L (3.6-5.0); SODIUM 140 mmol/L (132-148); TOTAL PROTEIN 7.2 g/dL (5.8-8.3)
[2016-11-30 15:07] LABS: TROPONIN I < 0.01 ng/mL
--- NOTE | 2016-11-30 16:20 | CT ---
PROCEDURE: CT HEAD WITHOUT CONTRAST. HISTORY: fell; hit head; on eliquis COMPARISON: 04/19/2015 TECHNIQUE: Axial computed tomography images were obtained through the head/brain without intravenous contrast. Radiation dose: Total exam DLP = 789 mGy-cm. This CT exam was performed using one or more of the following dose reduction techniques: Automated exposure control, adjustment of the mA and/or kV according to patient size, and/or use of iterative reconstruction technique. FINDINGS: HEMORRHAGE: No intracranial hemorrhage. BRAIN: No mass effect or edema. No atrophy or chronic microvascular ischemic changes. VENTRICLES: Unremarkable. No hydrocephalus. CALVARIUM: Unremarkable. PARANASAL SINUSES: Unremarkable as visualized. No significant inflammatory changes. MASTOID AIR CELLS: Unremarkable as visualized. No inflammatory changes. OTHER FINDINGS: None. IMPRESSION: No acute intracranial finding
--- NOTE | 2016-11-30 16:35 | CT ---
PROCEDURE: CT Cervical Spine without contrast HISTORY: Patient fell, left-sided neck pain COMPARISON: None available. TECHNIQUE: Axial computed tomography images were obtained of the cervical spine without the use of intravenous contrast. Coronal and sagittal reformatted images were created and reviewed. Radiation dose: Total exam DLP = 303 mGy-cm. This CT exam was performed using one or more of the following dose reduction techniques: Automated exposure control, adjustment of the mA and/or kV according to patient size, and/or use of iterative reconstruction technique. FINDINGS: VERTEBRAE: No fracture. Normal alignment. No destructive bony lesion. DISCS/SPINAL CANAL/NEURAL FORAMINA: No significant central canal or neural foraminal stenosis. There is disc degeneration at C5-6 and C6-7. There is mild anterior subluxation of C4 over C5. Left-sided facet arthropathy is seen a multiple levels PARASPINAL SOFT TISSUES: Unremarkable. OTHER FINDINGS: None. IMPRESSION: No acute findings
--- NOTE | 2016-11-30 17:24 | RAD ---
PROCEDURE: Left Wrist Radiographs. HISTORY: L wrist ttp s/p fall COMPARISON: None. FINDINGS: BONES: There is a transverse fracture of the mid scaphoid. This has sclerotic edges and is probably chronic JOINTS: Normal. No dislocation. SOFT TISSUES: Normal. OTHER FINDINGS: None. IMPRESSION: There is a transverse fracture of the mid scaphoid. This has sclerotic edges and is probably chronic
--- NOTE | 2016-11-30 17:26 | RAD ---
PROCEDURE: Radiographs of the Left Shoulder HISTORY: Left shoulder pain s/p fall COMPARISON: No prior. FINDINGS: BONES: Normal. No fracture. JOINTS: Normal. Glenohumeral and acromioclavicular joints preserved. No osteoarthritis. SOFT TISSUES: Normal. OTHER FINDINGS: None. IMPRESSION: Normal radiographs of the left shoulder.
--- NOTE | 2016-11-30 17:27 | RAD ---
PROCEDURE: Left Hand Radiographs. HISTORY: L hand pain s/p fall COMPARISON: None. FINDINGS: BONES: There is a chronic appearing transverse fracture of the mid scaphoid with sclerotic edges. The remainder the hand is unremarkable JOINTS: Normal. No osteoarthritic changes. SOFT TISSUES: Normal. OTHER FINDINGS: None. IMPRESSION: There is a chronic appearing transverse fracture of the mid scaphoid with sclerotic edges. The remainder the hand is unremarkable
--- NOTE | 2016-11-30 17:28 | RAD ---
PROCEDURE: Radiographs of the Left Forearm HISTORY: L forearm pain s/p fall COMPARISON: None available. TECHNIQUE: Frontal and lateral views obtained. FINDINGS: BONES: No fracture or destructive lesion. JOINT SPACES: Unremarkable. OTHER FINDINGS: None. IMPRESSION: Unremarkable radiographs of the left forearm.
--- NOTE | 2016-11-30 17:30 | RAD ---
HISTORY: dizzy COMPARISON: No prior. TECHNIQUE: Chest PA and lateral FINDINGS: LUNGS: No active pulmonary disease. PLEURA: No significant pleural effusion identified. No pneumothorax apparent. CARDIOVASCULAR: Normal. OSSEOUS STRUCTURES: No significant abnormalities. VISUALIZED UPPER ABDOMEN: Normal. OTHER FINDINGS: None. IMPRESSION: No active disease.
[2016-11-30] MEDS ORDERED: Non Formulary Medication (Valsartan [Diovan] 80 MG) PO SCH (18:00)
--- NOTE | 2016-11-30 18:50 | CP.PCM.CON ---
History of Present Illness - History of Present Illness History of Present Illness: NEURO CONSULT NOTE: 11/30/16 CHIEF COMPLAINT: DIZZINESS AND FALL HPI: THIS IS A 76 YEAR OLD WOMAN WITH H/O PONTINE INFARCTION, A-FIB ON ELIQUIS, COPD , CAD S/P STENTS, HTN, MELANOMA OF SKIN S/P RADIATION, AND ANXIETY WHO SUSTAINED A MECHANICAL FALL AT THE [employer] YESTERDAY WHEN HER SHOPPING CART ROLLED AWAY AND SHE FELL ON HER LEFT SIDE OF BODY AND HITTING HER LEFT SIDE OF HEAD BUT NO LOSS OF CONSCIOUSNESS, JUST MULTIPLE BRUISES. CT HEAD SHOWED NO ACUTE INTRACRANIAL ABNORMALITY. CT C-SPINE SHOWED DJD AT MULTIPLE LEVELS. SHE'S FOLLOWING COMMANDS AND MOVING EXTREMITIES. FEELS MILDLY LIGHTHEADED. ROS: 14 POINT REVIEW OF SYMPTOMS IS NEGATIVE PER HPI. ALLERGIES: NONE SOCIAL HISTORY: NO ILLICIT DRUG USE, SMOKING, OR ETOH USE. FAMILY: NON CONTRIBUTORY. MEDICATIONS: REVIEWED BY NURSE'S RECONCILIATION SHEET. PAST MEDICAL HISTORY: H/O PONTINE INFARCTION, A-FIB ON ELIQUIS, COPD, CAD S/P STENTS, HTN, MELANOMA OF SKIN S/P RADIATION, AND ANXIETY PHYSICAL EXAM: VITAL SIGNS: REVIEWED BY THE CHART GENERAL EXAM: PATIENT SEEN IN BED, IN NO ACUTE DISTRESS MORBIDLY OBESE. HEENT: PERRLA, EOMI, NECK SUPPLE, NO JVD, NO ADENOPATHY CVS: S1, S2, RRR, NO MURMURS NOTED LUNGS: CLEAR TO AUSCULTATION, NO ADVENTITIOUS SOUNDS ABDOMEN: SOFT AND NONTENDER EXTREMITIES: NO CLUBBING OR CYANOSIS. PP 2+ B/L NEURO: PT IS ALERT AND ORIENTED TO PERSON, PLACE, AND YEAR. POOR ATTENTION SPAN , SLOW THOUGHT PROCESS, RECALL TO 5 MINUTES 0/3, SPEECH IS FLUENT WITHOUT ERRORS, CN II-XII INTACT, MOTOR EXAM: NORMAL TONE, NORMAL BULK OF MUSCLE, MOVES ALL EXTREMITIES EQUALLY, NO PRONATOR DRIFT SEEN. SENSORY EXAM: LIGHT TOUCH, PIN PRICK INTACT B/L, PROPRIOCEPTION INTACT, DECREASED VIBRATION AT TOES AND KNEES. DEEP TENDON REFLEXES: 2+ THROUGHOUT EXCEPT 1 AT THE ANKLES. COORDINATION: FINGER TO NOSE IS INTACT. HEEL TO DIEHL IS INTACT GAIT: DEFERRED FOR NOW. LABS: REVIEWED BY THE CHART. ASSESSMENT AND PLAN: HIS IS A 76 YEAR OLD WOMAN WITH H/O PONTINE INFARCTION, A-FIB ON ELIQUIS, COPD , CAD S/P STENTS, HTN, MELANOMA OF SKIN S/P RADIATION, AND ANXIETY WHO SUSTAINED A MECHANICAL FALL AT THE [employer] YESTERDAY WHEN HER SHOPPING CART ROLLED AWAY AND SHE FELL ON HER LEFT SIDE OF BODY AND HITTING HER LEFT SIDE OF HEAD BUT NO LOSS OF CONSCIOUSNESS, JUST MULTIPLE BRUISES. CT HEAD SHOWED NO ACUTE INTRACRANIAL ABNORMALITY. CT C-SPINE SHOWED DJD AT MULTIPLE LEVELS. SHE'S FOLLOWING COMMANDS AND MOVING EXTREMITIES. HEAD INJURY SECONDARY TO MECHANICAL FALL. SHE'S CLINICALLY STABLE. DIZZINESS SECONDARY TO HEAD INJURY AND ANXIETY. PLAN: 1.CONTINUE WITH ELIQUIS FOR STROKE PREVENTION AND A-FIB. 2. A MONITOR ELECTROLYTES AND CORRECT ACCORDINGLY. 3.. PHYSICAL THERAPY EVALUATION FOR DECONDITIONED STATE 4. AVOID SUDDEN MOVEMENTS THANK YOU PLEASE RECONSULT NECESSARY. Riky DELATORRE MD Past Patient History - Infectious Disease Hx of Infectious Diseases: None - Tetanus Immunizations Tetanus Immunization: Unknown - Past Social History Smoking Status: Former Smoker - CARDIAC Hx Cardiac Disorders: Yes Hx Atrial Fibrillation: Yes Hx Congestive Heart Failure: Yes Other/Comment: Cardiac Stents - PULMONARY Hx Respiratory Disorders: Yes Hx Chronic Obstructive Pulmonary Disease (COPD): Yes - NEUROLOGICAL Hx Neurological Disorder: Yes HX Cerebrovascular Accident: Yes - HEENT Hx HEENT Problems: No - RENAL Hx Chronic Kidney Disease: No - ENDOCRINE/METABOLIC Hx Endocrine Disorders: No - HEMATOLOGICAL/ONCOLOGICAL Hx Blood Disorders: No - INTEGUMENTARY Hx Dermatological Problems: Yes (SKIN CA-RADIATION TREATMENTS) Hx Melanoma: Yes - MUSCULOSKELETAL/RHEUMATOLOGICAL Hx Falls: No - GASTROINTESTINAL Hx Gastrointestinal Disorders: No - GENITOURINARY/GYNECOLOGICAL Hx Genitourinary Disorders: No - PSYCHIATRIC Hx Psychophysiologic Disorder: Yes Hx Anxiety: Yes Hx Depression: No Hx Emotional Abuse: No Hx Physical Abuse: No Hx Substance Use: No - SURGICAL HISTORY Hx Coronary Stent: Yes Other/Comment: Brain Tumor - ANESTHESIA Hx Anesthesia: Yes Meds Allergies/Adverse Reactions: Allergies Allergy/AdvReac Type Severity Reaction Status Date / Time No Known Allergies Allergy Verified 11/30/16 13:55 - Medications Medications: Current Medications Alprazolam (Xanax) 0.25 mg PO TID PRN; Protocol PRN Reason: Anxiety Stop: 12/07/16 17:59 Apixaban (Eliquis) 5 mg PO BID GIAN PRN Reason: Protocol Aspirin (Ecotrin) 81 mg PO DAILY GIAN Atorvastatin Calcium (Lipitor) 20 mg PO HS GIAN Sodium Chloride (Sodium Chloride 0.9%) 1,000 mls @ 100 mls/hr IV .Q10H STA Stop: 12/01/16 00:03 Last Admin: 11/30/16 15:00 Dose: 100 mls/hr Losartan Potassium (Cozaar) 50 mg PO DAILY GIAN Oxycodone/Acetaminophen (Percocet 5/325 Mg Tab) 1 tab PO Q6H PRN PRN Reason: Pain, moderate (4-7) Stop: 12/03/16 17:59 Verapamil HCl (Calan Tab) 40 mg PO BID [facility] Results - Vital Signs Recent Vital Signs: Last Vital Signs Temp 97.9 F 11/30/16 13:41 Pulse 67 11/30/16 17:44 Resp 18 11/30/16 17:44 BP 144/65 11/30/16 17:44 Pulse Ox 100 11/30/16 17:44 - Labs Result Diagrams: 11/30/16 14:35 11/30/16 14:35
[2016-11-30] MEDS ORDERED: Pneumococcal 23-Valent Vaccine IM ONE (22:57)
[2016-12-01 00:39] VITALS: RESP 20; O2SAT 96
[2016-12-01] MEDS: Oxycodone/Acetaminophen 5/325 mg Tab PO PRN ×2 (03:42→10:13)
[2016-12-01 04:05] LABS: PH,URINE 5.5 (4.7-8.0); URINE BILIRUBIN NEGATIVE (NEGATIVE); URINE BLOOD NEGATIVE (NEGATIVE); URINE GLUCOSE (UA) NEGATIVE (NEGATIVE); URINE KETONE NEGATIVE (NEGATIVE); URINE LEUKOCYTE ESTERASE MODERATE Leu/uL (NEGATIVE); URINE PROTEIN NEGATIVE mg/dL (<30 mg/dL)
[2016-12-01 04:11] LABS: URINE APPEARANCE SL CLOUDY (CLEAR); URINE COLOR YELLOW (YELLOW)
[2016-12-01 04:35] LABS: URINE BACTERIA FEW (NEG); URINE EPITHELIAL CELLS 0 - 2 /hpf (0-5); URINE RBC 0 - 2 /hpf (0-2)
--- NOTE | 2016-12-01 11:25 | CARD ---
APPROVED REPORT EKG Measurement Heart [id number] <Conclusion> Atrial flutter with variable AV block Nonspecific T wave abnormality
--- NOTE | 2016-12-01 14:33 | MRI ---
PROCEDURE: MRI BRAIN WITHOUT CONTRAST HISTORY: syncope COMPARISON: 04/20/2015 TECHNIQUE: Multiplanar, multisequence MR images of the brain were obtained without intravenous contrast enhancement. FINDINGS: HEMORRHAGE: None DWI: No evidence of an acute or early subacute infarction. BRAIN PARENCHYMA: No mass effect or edema. Chronic microvascular changes are seen in the periventricular white matter and the andra. There are no acute findings. Moderate atrophy. VENTRICLES: Unremarkable. No hydrocephalus. CRANIUM: Unremarkable. ORBITS: Grossly unremarkable. PARANASAL SINUSES/MASTOIDS: Clear VASCULAR SYSTEM: Skull base flow voids intact. OTHER FINDINGS: None. IMPRESSION: No acute intracranial findings
[2016-12-01 17:52] VITALS: BP 128/56; PULSE 97; TEMP 98.9
== END 2016-12-01 19:30 | disposition home or self-care (01) ==
LOC: ED 13:41 → ERH 17:29 → 2RNO 21:26
PROVIDERS: ADMIT Internal Medicine; ATTEND Internal Medicine
DX: R55 Syncope and collapse (principal); I48.91 Unspecified atrial fibrillation; I48.92 Unspecified atrial flutter; I50.9 Heart failure, unspecified; J44.9 Chronic obstructive pulmonary disease, unspecified; M47.9 Spondylosis, unspecified; R40.2412 Glasgow coma scale score 13-15, at arrival to emergency department; F41.9 Anxiety disorder, unspecified; I11.0 Hypertensive heart disease with heart failure; S09.90XA Unspecified injury of head, initial encounter; W18.39XA Other fall on same level, initial encounter; Y93.01 Activity, walking, marching and hiking; Y92.512 Supermarket, store or market as the place of occurrence of the external cause; I25.10 Atherosclerotic heart disease of native coronary artery without angina pectoris; Z79.01 Long term (current) use of anticoagulants; Z79.82 Long term (current) use of aspirin; Z79.899 Other long term (current) drug therapy; Z85.820 Personal history of malignant melanoma of skin; Z86.73 Personal history of transient ischemic attack (TIA), and cerebral infarction without residual deficits; Z87.891 Personal history of nicotine dependence; Z92.3 Personal history of irradiation; Z95.5 Presence of coronary angioplasty implant and graft; T14.8 Other injury of unspecified body region
CPT/HCPCS: 70450; 70551; 71020; 72125; 73030; 73090; 73110; 73130; 80053; 81001; 82550; 82948; 83615; 83690; 83735; 84484; 85025; 85610; 85730; 93005; 96372; 96374; 96375; 97116; 97162; 99285; G0378; G8978; G8979; J1885; J2270; J2405; J7040